=== PATIENT | female | born 1980 | race African-American/Black ===

== ENCOUNTER 2025-04-27 15:45 | Emergency (ER) | payer SELFPAY ==
[~2025-04-27] VITALS: Ht 160 cm; Wt 107.7 kg
[2025-04-27 15:56] VITALS: BP 119/70; PULSE 123; RESP 18; TEMP 99.1; O2SAT 97
[2025-04-27] MEDS ORDERED: SEMA0.253 SQ (16:02)
[2025-04-27] MEDS ORDERED: FAMO20 PO (16:02)
[2025-04-27] MEDS: FAMOTIDINE 20 MG/2 ML VIAL IVP ONE (16:28)
[2025-04-27] MEDS: ONDANSETRON HCL 4 MG/2 ML VIAL IVP ONE ×2 (16:29→18:36)
[2025-04-27] MEDS: SODIUM CHLORIDE 0.9% 1,000 ML IV ONE (16:29)
[2025-04-27 17:26] LABS: PLATELET COUNT (AUTO) 340 K/uL (150-450); RED BLOOD CELL COUNT(AUTO) 4.53 MIL/uL (4.00-5.20); RED CELL DISTRIBUTION WIDTH 14.8 % (11.5-14.5); WHITE BLOOD COUNT (AUTO) 7.2 K/uL (4.5-11.0)
[2025-04-27 17:36] LABS: CALCIUM, TOTAL 8.4 mg/dL (8.8-10.5); CREATININE 0.78 mg/dL (0.60-1.30); GLOMERULAR FILTR. RATE CALC > 60 mL/min (>60); GLUCOSE,RANDOM 115 mg/dL (70-110); SODIUM SERUM 138 mmol/L (136-145); UREA NITROGEN, BLOOD 9 mg/dL (7-18)
[2025-04-27 17:47] LABS: ASPARTATE AMINOTRANSFERASE 18.0 U/L (15-37); TOTAL PROTEIN, SERUM 7.0 g/dL (6.4-8.2)
[2025-04-27] MEDS: ONDANSETRON 4 MG TABLET PO ONE (18:30)
== END 2025-04-27 19:38 | disposition left against medical advice (07) ==
LOC: EMS 15:45
DX: N93.8 Other specified abnormal uterine and vaginal bleeding (principal); R11.2 Nausea with vomiting, unspecified; R10.32 Left lower quadrant pain; L29.9 Pruritus, unspecified; Z88.0 Allergy status to penicillin; Z88.1 Allergy status to other antibiotic agents; Z88.5 Allergy status to narcotic agent; Z90.710 Acquired absence of both cervix and uterus; Z90.721 Acquired absence of ovaries, unilateral
CPT/HCPCS: 76830; 76856; 80048; 80076; 83690; 84703; 85025; 85610; 85730; 96374; 96375; 96376; 99285; J1171; J1200; J2405; J3490; J7030; Q0162